=== PATIENT | male | born 1965 | race Caucasian/White ===

== ENCOUNTER 2025-08-20 01:50 | Emergency (ER) | payer BC ==
[~2025-08-20] VITALS: Ht 172.7 cm; Wt 77.1 kg
[2025-08-20 02:31] LABS: PLATELET COUNT (AUTO) 235 K/uL (152-348); RED BLOOD CELL COUNT(AUTO) 4.84 MIL/uL (4.06-5.63); RED CELL DISTRIBUTION WIDTH 13.3 % (12.1-16.2); WHITE BLOOD COUNT (AUTO) 9.6 K/uL (3.6-10.2)
[2025-08-20] MEDS: IV NORMAL SALINE 1000 ML BAG IV ONE (02:35)
[2025-08-20 02:38] LABS: CREATININE 0.9 mg/dL (0.6-1.3); SODIUM SERUM 143 mmol/L (136-145); UREA NITROGEN, BLOOD 23 mg/dL (7-18)
[2025-08-20 02:41] LABS: *BILIRUBIN,URIN NEGATIVE (NEGATIVE); *CLARITY,URINE CLEAR (CLEAR); *COLOR,URINE YELLOW (YELLOW); *KETONES,URINE NEGATIVE (NEGATIVE); *PROTEIN,URINE NEGATIVE (NEGATIVE); *UROBILINOGEN,URINE 0.2 E.U./dl (NORMAL); LEUKOCYTE ESTERASE ,URINE NEGATIVE (NEGATIVE); NITRITE, URINE NEGATIVE (NEGATIVE); UGLUCOSE NEGATIVE (NEGATIVE)
[2025-08-20 02:42] LABS: *BLOOD, URINE TRACE (NEGATIVE)
[2025-08-20 02:43] LABS: ASPARTATE AMINOTRANSFERASE 19 U/L (15-37); TOTAL PROTEIN, SERUM 6.1 g/dL (6.4-8.2)
[2025-08-20] MEDS ORDERED: SWABABLE VALVE TRANSFER SET EA MC ONE (02:53)
[2025-08-20] MEDS ORDERED: IOHEXOL 300MG/ML 100 ML INFUS..BTL ONE (02:53)
[2025-08-20] MEDS ORDERED: IV NORMAL SALINE 250 ML IV ONE (02:53)
[2025-08-20 04:00] VITALS: BP 137/88
[2025-08-20] MEDS ORDERED: HYDR-3972 PO (04:59)
[2025-08-20 05:10] VITALS: BP 133/82; O2SAT 95
== END 2025-08-20 05:11 | disposition home or self-care (01) ==
LOC: ER 01:52
DX: K65.4 Sclerosing mesenteritis (principal)
CPT/HCPCS: 99285; 74177; 96360; 96361; 80076; 80048; 81001; 83690; 85025; 85730; 84484; 36415; Q9967; J7040; A4606; A4663